=== PATIENT | male | born 1985 | race Caucasian/White ===

== ENCOUNTER 2024-08-15 16:45 | Emergency (ER) | payer OTHER ==
[~2024-08-15] VITALS: Ht 172.7 cm; Wt 81.6 kg
[2024-08-15 16:49] VITALS: BP 129/92; PULSE 89; RESP 16; TEMP 98.8; O2SAT 95
[2024-08-15] MEDS: ONDANSETRON 4 MG ODT PO ONE (17:08)
[2024-08-15] MEDS ORDERED: CHLO-757 PO (19:29)
[2024-08-15 19:37] VITALS: BP 130/83; PULSE 84; RESP 11; O2SAT 97
[2024-08-15] MEDS: ASPIRIN 325 MG TAB PO ONE (19:45)
== END 2024-08-15 19:45 | disposition home or self-care (01) ==
LOC: MED 16:45 → EDBD 16:45 → MED 19:45
DX: T40.411A Poisoning by fentanyl or fentanyl analogs, accidental (unintentional), initial encounter (principal); F11.229 Opioid dependence with intoxication, unspecified; R05.9 Cough, unspecified; R51.9 Headache, unspecified
CPT/HCPCS: 71045; 93005; 99285; Q0162